=== PATIENT | female | born 1975 | race Two or more races ===

== ENCOUNTER 2023-09-22 12:10 | Outpatient (AMB) | payer OTHER, SELFPAY ==
--- NOTE | 2023-09-22 12:25 | A.OFFVIS_ITS ---
VS Expanded 09/22/23 12:29 09/24/23 14:30 Height 5 ft 4 in 5 ft 4 in Weight 123 lb 14.397 oz 124 lb BMI 21.3 21.3 Intake Visit Reasons: Intestinal metaplasia/CONFIRMED Nutrition Presentation Details: Pt presents for MNT for instructions on low salt diet related to intestinal metaplasia . The Pt was referred by machine [employer] etc[employer] specialist, Ray Rashid and Dr. Den Triplett Pt reports having lost 12 lbs in 3 wks related to cutting out all salt from the diet and lacking flavors. Pt is very worried about dx of IM. Meals may consist B/L: Oatmeal with milk or with frui and water or root vegetables and scrambled eggs, water dinner: broccoli i/salmon chicken snack: fruits (papaya) ETOH/smoking- denies physical activity: daily life activities BS Monitoring Most Recent Diabetes Results: No Data to Display TAH-Ovkcfgy-Gu[employer]Jeor Equation Height: 5 ft 4 in Weight: 124 lb Resting Metabolic Rate: 1175.81 Calculated Activity Level: Mild Activity Calories Needed to Maintain Weight: 1616.74 Diagnosis Nutrition problem #1: food nutri know defi As related to (etiology) #1: diagnosis (IM and instruction on low sodium concepts) Monitoring/Goals Nutrition problem monitoring: level of knowledge/skill Assessment & Plan Assessment & Plan (1) Gastric intestinal metaplasia: Code(s): K31.A0 - Gastric intestinal metaplasia, unspecified Category: Medical Plan: Wt: 56 Kg ( 09/2023 ) Est kcal needs as per MSJ: 1700 (40% carb, 30% protein/fat) Est fluid needs as per 25-30 ml/d: 1700 Est prot per day as per 1 g/kg bw: 56 Recommend fiber intake : 8-10 g per day and gradually increase to 25-28 g per day for women and 35-38 g for men or as tolerated Recommend sodium intake per day : less than 2000 mg Educated patient on: ( R = reviewed V = verbalizes understanding N/R = needs review N/A = not applicable * Food sources of carbohydrate, adequate serving sizes and its role in various health conditions: R V N/R * Differences between complex carbohydrates a simple carbohydrates, role of fiber in diet: R * Lean protein sources of foods: R * Differences between types of fats and role in diet (mono on saturated fat fatty acids, saturated fatty acids, trans fats): R, basic low fat, reduction of highly processed foods * Food sources of sodium in salt and healthy modifications for heart health in kidney health: R * Vitamins and minerals: R * Healthy plate method concept: R * Physical activity: Benefits a precaution: R V N/R * Hypoglycemia protocol (rule of 15): R V N/R * Dietary prevention of Hyperglycemia: R V R/V Patient Instructions: Choose low sodium foods, aim at consuming 0135-8936 mg sodium distributed throughout the day Follow healthy plate method see list of options for low sodium foods concepts Coding Level of Care Code Nutr Indiv Intake (86091) Diagnoses Gastric intestinal metaplasia K31.A0 Time Spent (min) 30
[2023-09-22 12:29] VITALS: BMI 21.3
[2023-09-24 14:30] VITALS: BMI 21.3
== END 2023-09-22 13:06 | disposition home or self-care (01) ==
PROVIDERS: Visit Provider Dietitian, Registered
DX: K31.A0 Gastric intestinal metaplasia, unspecified (principal)

== ENCOUNTER → 2023-09-22 12:10 | Outpatient (BNVA) | payer OTHER, SELFPAY | PROVIDERS: Visit Provider Dietitian, Registered | DX: K31.A0 Gastric intestinal metaplasia, unspecified (principal); Z71.3 Dietary counseling and surveillance | CPT/HCPCS: 97802 ==

== ENCOUNTER 2023-11-30 13:56 | Outpatient (AMB) | payer OTHER, SELFPAY ==
[2023-11-30 14:08] VITALS: BMI 19.8
--- NOTE | 2023-11-30 14:08 | A.OFFVIS_ITS ---
VS Expanded 11/30/23 14:08 Height 5 ft 4 in Weight 115 lb 1.301 oz BMI 19.8 Intake Visit Reasons: Intestinal metaplasia/LVM Nutrition Presentation Details: Pt presents for MNT f/u for, initially, low sodium concepts related to intestinal metaplasia Today Pt reports reducing food portions, and skipping meals due to concerns of intestinal metaplasia and thus is losing weight, 9 lbs wt loss in 2 months. BS Monitoring Most Recent Diabetes Results: No Data to Display Assessment & Plan Assessment & Plan (1) Gastric intestinal metaplasia: Code(s): K31.A0 - Gastric intestinal metaplasia, unspecified Category: Medical Plan: Wt: 56 Kg ( 09/2023 ), 52 kg (11/2023) Est kcal needs as per MSJ: 1700 (40% carb, 30% protein/fat) Est fluid needs as per 25-30 ml/d: 1700 Est prot per day as per 1 g/kg bw: 56 Recommend fiber intake : 8-10 g per day and gradually increase to 25-28 g per day for women and 35-38 g for men or as tolerated Recommend sodium intake per day : less than 2000 mg Educated patient on: ( R = reviewed V = verbalizes understanding N/R = needs review N/A = not applicable * Food sources of carbohydrate, adequate serving sizes and its role in various health conditions: R V N/R * Differences between complex carbohydrates a simple carbohydrates, role of fiber in diet: R * Lean protein sources of foods: R * Differences between types of fats and role in diet (mono on saturated fat fatty acids, saturated fatty acids, trans fats): R, basic low fat, reduction of highly processed foods * Food sources of sodium in salt and healthy modifications for heart health in kidney health: R * Vitamins and minerals: R * Healthy plate method concept: R * Physical activity: Benefits a precaution: R V N/R Patient Instructions: Do not skip meals - have 3 meals /day and a snack in between meals - carry ensure plus to prevent skipping meals Add monounsaturated fats to your meals (avocado, oil, nut butters) Choose fruit/vegetables smoothies Coding Level of Care Code Nutr Indiv Subseq (08109) Diagnoses Gastric intestinal metaplasia K31.A0 Time Spent (min) 30
== END 2023-11-30 14:59 | disposition home or self-care (01) ==
PROVIDERS: Visit Provider Dietitian, Registered
DX: K31.A0 Gastric intestinal metaplasia, unspecified (principal)

== ENCOUNTER → 2023-11-30 13:56 | Outpatient (BNVA) | payer OTHER, SELFPAY | PROVIDERS: Visit Provider Dietitian, Registered | DX: K31.A0 Gastric intestinal metaplasia, unspecified (principal); Z71.3 Dietary counseling and surveillance | CPT/HCPCS: 97803 ==